=== PATIENT | female | born 1995 | race Caucasian/White ===

== ENCOUNTER → 2019-01-31 | Outpatient (REF) | payer OTHER | LOC: M SFHCLERA 10:46 | PROVIDERS: ATTEND Physician Assistant | DX: R10.9 Unspecified abdominal pain (principal); N92.6 Irregular menstruation, unspecified | CPT/HCPCS: 81002; 81025; 84702; 87086; G0463 ==

== ENCOUNTER → 2019-07-30 | Outpatient (CLI) | payer OTHER ==
--- NOTE | 2019-07-30 12:27 | REP ---
Chest x-ray: Two views. History: Cough . Comparison study: No comparison study . Findings: The lungs are well inflated and free of infiltrate. The pleural angles are sharp. The heart size is normal. Pulmonary vasculature is not increased. No significant bony abnormality is seen. Impression: Negative chest x-ray. Electronically Signed by Lito Browne MD 07/30/2019 12:18 P
== END ==
LOC: M WUC 11:19
PROVIDERS: ATTEND Nurse Practitioner Family
DX: R05 Cough (principal)

== ENCOUNTER → 2019-08-14 | Outpatient (CLI) | payer OTHER ==
[~2019-08-14] MED LIST: METHACHOLINE KIT (J7674) INH ONE
--- NOTE | 2019-08-14 13:38 | PFTRPT ---
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 Review Status: Not Reviewed Pre-Bronch Post-Bronch Pred Actual %Pred Actual %Chng SPIROMETRY FVC (L) 4.29 3.33 77 3.50 5 FEV1 (L) 3.63 2.88 79 2.88 FEV1/FVC (%) 85 87 101 82 -4 FEF 25% (L/sec) 6.21 5.69 91 6.46 13 FEF 50% (L/sec) 4.61 4.50 97 3.86 -14 FEF 75% (L/sec) 1.98 1.60 81 1.56 -2 FEF 25-75% (L/sec) 3.81 3.55 93 3.32 -6 FEF Max (L/sec) 7.59 5.76 75 6.89 19 FIVC (L) 3.10 3.16 1 FIF 50% (L/sec) 4.38 5.27 120 5.97 13 FIF Max (L/sec) 5.45 5.97 9 Expiratory Time (sec) 6.55 6.48 -1 Back Extrap Vol (L) 0.10 0.12 22 Time To FEFmax (sec) 0.109 0.082 -24
== END ==
LOC: M CARPUL 12:37
PROVIDERS: ATTEND Nurse Practitioner Family
DX: Z02.1 Encounter for pre-employment examination (principal)
CPT/HCPCS: 94070; J7674

== ENCOUNTER → 2019-11-02 | Outpatient (REF) | payer OTHER | LOC: M SFHCLERA 10:27 | PROVIDERS: ATTEND Nurse Practitioner Family | DX: J02.9 Acute pharyngitis, unspecified (principal) ==